=== PATIENT | male | born 1995 ===

== ENCOUNTER 2017-09-30 00:52 | Day surgery (SDC) | payer OTHER ==
[~2017-09-30] VITALS: Ht 177.8 cm; Wt 71.7 kg
[~2017-09-30 00:52] MED LIST: FLUT16SP19
[2017-09-30] MEDS ORDERED: fentaNYL CITR 100 MCG/2 ML AMP ONE ×2 (06:30→14:02)
[2017-09-30] MEDS ORDERED: DEXAMETHASONE SOD PHOS 10MG/ML ONE (06:31)
[2017-09-30] MEDS ORDERED: ONDANSETRON 4 MG/2 ML VIAL ONE (06:31)
[2017-09-30] MEDS ORDERED: LIDOCAINE MPF 1% 5 ML VIAL ONE (06:31)
[2017-09-30] MEDS ORDERED: PROPOFOL EMUL(*) 10MG/ML 20 ML 20 ML ONE (06:31)
[2017-09-30] MEDS ORDERED: SUGAMMADEX SOD 200 MG/2 ML SDV ONE (06:32)
[2017-09-30] MEDS ORDERED: ceFAZolin(*) 2GM/D5W 50ML 50 ML IVPB ONE (07:35)
[2017-09-30] MEDS ORDERED: FAMOTIDINE 20 MG TAB PO ONE (12:00)
[2017-09-30] MEDS ORDERED: LIDOCAINE/SOD BICARB 8.4% SYR ID ONE (12:00)
[2017-09-30] MEDS ORDERED: NORMOSOL R SOLN(*) 1000 ML BAG 1,000 ML IV PRN (12:00)
[2017-09-30] MEDS ORDERED: MIDAZOLAM 2 MG/2 ML VIAL IVP PRN (12:00)
[2017-09-30] MEDS ORDERED: REMIFENTANIL HCL 1 MG VIAL ONE (12:02)
[2017-09-30] MEDS ORDERED: HALOPERIDOL LACT 5 MG/ML VIAL IM ONE (12:03)
[2017-09-30 12:09] VITALS: BP 151/91
[2017-09-30] MEDS ORDERED: NS(*) 0.9% 500 ML BAG 500 ML ONE (12:36)
[2017-09-30] MEDS ORDERED: OXYMETAZOLINE SPRAY 15 ML BTL ONE (12:36)
[2017-09-30] MEDS ORDERED: BACITRACIN OINT 15 GM TUBE TP ONE (12:36)
[2017-09-30] MEDS ORDERED: LIDO/EPI 1% MDV 1:100,000 20ML INFIL ONE (12:36)
[2017-09-30] MEDS ORDERED: ePHEDrine 25 MG/5 ML DISP.SYR IVP ONE (13:02)
[2017-09-30] MEDS ORDERED: CEFU500T10 PO (13:52)
[2017-09-30] MEDS ORDERED: HYDR-4309 PO (13:53)
[2017-09-30] MEDS ORDERED: APAP/HYDROCODONE 325/5 TAB ONE (14:09)
[2017-09-30 14:26] VITALS: BP 139/86
[2017-09-30 14:30] VITALS: BP 142/93
[2017-09-30 14:57] VITALS: BP 144/99
[2017-09-30 14:59] VITALS: BP 140/85
--- NOTE | 2017-10-01 07:27 | OPERATIVE REPORT 1 ---
EVENT DATE: September 30, 2017 SURGEON: Demar Ambrosio MD ANESTHESIOLOGIST: Ace Morales MD ANESTHESIA: General endotracheal PROCEDURES 1. Septoplasty. 2. Submucous resection of the bilateral inferior turbinates. PREOPERATIVE DIAGNOSES 1. Nasal septal deviation. 2. Bilateral inferior turbinate hypertrophy. POSTOPERATIVE DIAGNOSES 1. Nasal septal deviation. 2. Bilateral inferior turbinate hypertrophy. INDICATIONS Please refer to the preoperative note. PROCEDURE The patient was positively identified in the preoperative area. He was accompanied by both parents. Risks again explained, including, but not limited to, bleeding, infection, nasal septal perforation, and those associated with anesthesia. They acknowledged understanding those risks. He was then brought back to the operative suite, laid supine on the operative table, and anesthesia was administered. Once asleep, the patient was positioned and prepped and draped in usual sterile fashion. I initially decongested the nose by injecting approximately 10 mL of 1% lidocaine with epinephrine to the bilateral anterior nasal septal mucosa and along the face of the bilateral inferior turbinates. Both nasal cavities were subsequently packed with cottonoids containing Afrin solution. These were subsequently removed, and nasal endoscopy was performed. This was notable for a severe left nasal septal deviation. A Rio incision was made in the left anterior nasal septal mucosa. A subperichondrial flap was elevated. An incision was then made into the anterior nasal septal cartilage approximately 5 mm posterior to the original Rio incision. A contralateral flap was raised. The deviated portion of the patient's nasal septal cartilage and bone was then removed. The patient was noted to have a through and through mucosal flap perforation anteriorly. Therefore, a 1 x 2 cm [employer] graft was placed between the two mucosal flaps. The Rio incision was then closed with interrupted chromic stitch. I then addressed the inferior turbinates. A stab incision was made at the face of the left inferior turbinate. A Thomas elevator was utilized to elevate the mucosa off the underlying bone. A submucous resection was then performed with the turbinate blade on the microdebrider. The stab incision was then cauterized with suction Bovie electrocautery. The contralateral inferior turbinate was addressed in a similar fashion. Bilateral nasal septal splints were then placed and secured to the columella with a suture. The patient was returned to Anesthesia for emergence. ESTIMATED BLOOD LOSS 25 mL. COMPLICATIONS No complications. MTDD
== END 2017-09-30 14:26 | disposition home or self-care (01) ==
LOC: OR 00:52
PROVIDERS: ATTEND Otolaryngology
DX: J34.2 Deviated nasal septum (principal); J34.3 Hypertrophy of nasal turbinates
CPT/HCPCS: 30140; 30520; J1100; J1630; J2001; J2250; J2405; J2704; J3010; J7040; C1763; J0690